=== PATIENT | female | born 1965 | race Caucasian/White ===

== ENCOUNTER 2018-08-08 13:42 | Inpatient (IN) | payer OTHER ==
[2018-08-08 18:13] VITALS: BMI 25.0
--- NOTE | 2018-08-08 19:22 | HP ---
CIWA Score - Admission Criteria [facility]ASAS Guidelines: Admission for Medically Managed Detox: Requires at least one of the followin. CIWA greater than 12 2. Seizures within the past 24 hours 3. Delirium tremens within the past 24 hours 4. Hallucinations within the past 24 hours 5. Acute intervention needed for co occurring medical disorder 6. Acute intervention needed for co occurring psychiatric disorder 7. Severe withdrawal that cannot be handled at a lower level of care (continued vomiting, continued diarrhea, abnormal vital signs) requiring intravenous medication and/or fluids 8. Admission ROS [facility] Allergies/Adverse Reactions: Allergies Allergy/AdvReac Type Severity Reaction Status Date / Time No Known Allergies Allergy Verified 08/08/18 19:16 History of Present Illness: pt here requesting rehab from cocaine use , reports 600 $ since Sunday , relapsed Sunday , prior sobriety since March 2017 , latest use today . went to [facility] for rash ,per pt referred to this facility , d/c paperwork indicates instructions for followup with dermatology clinic. denies other illicits denies etoh " only special occasions " pmHx : asthma, htn , herniated disc , bipolar d/o , depression . Denies current SI / HI PSHx : siena SHX : lives in women's retirement Exam Limitations: No Limitations - Ebola screening Have you traveled outside of the country in the last 21 days: No Have you had contact with anyone from an Ebola affected area: No Have you been sick,other than usual withdrawal symptoms: No Do you have a fever: No - Review of Systems Constitutional: Other (reports fatigue) EENT: reports: Other (reports " I am supposed to wear glasses ") Respiratory: reports: No Symptoms reported Cardiac: reports: No Symptoms Reported GI: reports: No Symptoms Reported : reports: No Symptoms Reported Musculoskeletal: reports: Back Pain Integumentary: reports: Rash (right elbow) Neuro: reports: No Symptoms reported Endocrine: reports: No Symptoms Reported Psychiatric: reports: Orientated x3 Patient History - Smoking Cessation Smoking history: Never smoked - Substances Abused Cocaine Route: Smoking Frequency: 3-6 times per week Amount used: $600 Age of first use: 25 Date of Last Use: 08/06/18 Family Disease History - Family Disease History Family Disease History: CA: Grandparent (cousin-dm ), Father (d. ), Other: Father, Mother (sarah DON, CVA ), Son (1 , A & W ), Daughter (3, A & W ) Admission Physical Exam [facility] - Vital Signs Vital Signs: Vital Signs - 24 hr 08/08/18 18:11 Temperature 98.7 F Pulse Rate 94 H Respiratory 18 Rate Blood Pressure 115/66 - Physical General Appearance: Yes: Disheveled, Other (no eye contact) HEENTM: Yes: EOMI, Hearing grossly Normal, Normocephalic, Normal Voice Respiratory: Yes: Chest Non-Tender, Lungs Clear, Normal Breath Sounds Neck: Yes: No masses,lesions,Nodules, Trachea in good position Cardiology: Yes: Regular Rhythm, Regular Rate, S1, S2, Murmur, Tachycardia Abdominal: Yes: Normal Bowel Sounds, Non Tender, Soft, Protuberent, Surgical Scar Back: Yes: Normal Inspection Musculoskeletal: Yes: Gait Steady Extremities: Yes: Non-Tender, Pedal Edema Neurological: Yes: Motor Strength 5/5, Depressed Affect Integumentary: Yes: Normal Color, Warm - Diagnostic (1) Cocaine abuse Current Visit: Yes Status: Acute S Breath Alcohol Content Breath Alcohol Content: 0 Urine Pregancy Test - Result Urine Test Results: Negative - NO line present Urine Drug Screen - Results Drug Screen Negative: No Urine Drug Screen Results: ROSINA-Cocaine Inpatient Rehab Admission - Rehab Decision to Admit Inpatient rehab admission?: Yes - Initial Determination Are CD services needed?: Yes Free of communicable disease: Yes Not in need of hospitalization: Yes - Rehab Admission Criteria Previous failed treatment: No Poor recovery environment: Yes Comorbidities: Yes Lacks judgement: Yes Patient is meeting Inpatient Rehab admission criteria:: Yes
[2018-08-08] MEDS ORDERED: MAGNESIUM HYDROX 2400MG/30ML ORAL SUSPENSION 30 ML CUP PO PRN (19:50)
[2018-08-08] MEDS ORDERED: MAGNESIUM CITRATE 300 ML BOTTLE PO PRN (19:50)
[2018-08-08] MEDS ORDERED: guaiFENesin 200 MG/10 ML 10 ML UNIT-DOSE CUPS PO PRN (19:50)
[2018-08-08] MEDS ORDERED: MENTHOL/PHENOL 1 EACH UD MM PRN (19:50)
[2018-08-08] MEDS ORDERED: P-EPHED 60MG/TRIPROLIDI 2.5MG TABLET PO PRN (19:50)
[2018-08-08] MEDS ORDERED: ALBUTEROL SO4 0.083% IH SOL 2.5 MG/3 ML VIAL.NEB. NEB PRN (19:51)
[2018-08-08] MEDS ORDERED: TUBERCULIN PPD 5 TU/0.1ML VIAL ID ONE (23:37)
[2018-08-08] MEDS: CEPHALEXIN MONOHYDRATE 500 MG CAPSULE (UD) PO SCH (23:53)
[2018-08-08] MEDS: CLOTRIMAZOLE 1% CREAM 15 GM TUBE TP SCH (23:54)
[2018-08-08] MEDS: THIAMINE HCL 100 MG TABLET (FP) PO SCH (23:56)
[2018-08-09] MEDS: CEPHALEXIN MONOHYDRATE 500 MG CAPSULE (UD) PO SCH ×3 (07:54→21:05)
[2018-08-09] MEDS: PRENATAL VITAMINS W/ FOLIC ACID TABLET (FP) PO SCH (10:50)
[2018-08-09] MEDS: predniSONE 20 MG TABLET (UD) PO SCH (10:50)
[2018-08-09] MEDS: CLOTRIMAZOLE 1% CREAM 15 GM TUBE TP SCH ×2 (11:00→21:37)
[2018-08-09 12:04] LABS: ALBUMIN 2.7 g/dl (3.4-5.0); ALK PHOS 78 U/L (45-117); ANION GAP 5 MMOL/L (8-16); BILIRUBIN,TOTAL < 0.1 mg/dL (0.2-1); BLOOD UREA NITROGEN 18 mg/dL (7-18); CALCIUM 7.8 mg/dL (8.5-10.1); CHLORIDE 111 mmol/L (98-107); CO2 31 mmol/L (21-32); CREATININE 0.8 mg/dL (0.55-1.3); GLUCOSE,RANDOM 106 mg/dL (74-106); POTASSIUM 3.8 mmol/L (3.5-5.1); SGOT/AST 9 U/L (15-37); SGPT/ALT 14 U/L (13-61); SODIUM 146 mmol/L (136-145); TOT PROT 5.3 g/dl (6.4-8.2)
[2018-08-09 12:10] LABS: HEMATOCRIT 37.1 % (32.4-45.2); HEMOGLOBIN 12.1 GM/dL (10.7-15.3); MCH 27.6 pg (25.7-33.7); MCHC 32.7 g/dl (32.0-36.0); MEAN CELL VOLUME 84.4 fl (80-96); MEAN PLT VOLUME 8.2 fl (7.5-11.1); PLATELET COUNT 175 K/MM3 (134-434); RBC 4.39 M/mm3 (3.60-5.2); RDW 13.8 % (11.6-15.6); WHITE BLOOD COUNT 5.9 K/mm3 (4.0-10.0)
[2018-08-09] MEDS ORDERED: NICOTINE POLACRILEX 2 MG GUM BUC PRN (14:06)
--- NOTE | 2018-08-09 14:15 | PN ---
[facility] Progress Note Note: LAB REVIEW: Vital Signs (72 hours) 08/08/18 08/09/18 08/09/18 18:11 01:14 03:30 Temperature 98.7 F 97.8 F Pulse Rate 94 H 89 Respiratory 18 18 16 Rate Blood Pressure 115/66 121/70 08/09/18 08/09/18 08:01 09:13 Temperature 97.2 F L Pulse Rate 88 90 Respiratory 16 18 Rate Blood Pressure 131/73 132/79 Laboratory Tests 08/09/18 08/09/18 08/09/18 10:00 10:00 10:00 WBC 5.9 RBC 4.39 Hgb 12.1 Hct 37.1 MCV 84.4 MCH 27.6 MCHC 32.7 RDW 13.8 Plt Count 175 MPV 8.2 Sodium 146 H Potassium 3.8 Chloride 111 H Carbon Dioxide 31 Anion Gap 5 L BUN 18 Creatinine 0.8 Creat Clearance w eGFR 75.03 Random Glucose 106 Calcium 7.8 L Total Bilirubin < 0.1 L AST 9 L ALT 14 Alkaline Phosphatase 78 Total Protein 5.3 L Albumin 2.7 L RPR Titer Nonreactive Labs noted.
[2018-08-09] MEDS: NICOTINE 14 MG/24 HOURS TOPICAL PATCH TD SCH (15:22)
[2018-08-09] MEDS: THIAMINE HCL 100 MG TABLET (FP) PO SCH (21:05)
[2018-08-09] MEDS: MELATONIN 5 MG TABLETS PO PRN (21:06)
[2018-08-09 22:39] LABS: EPI CELLS 26.7 /HPF (0-5); PH,URINE 7.5 (5.0-8.0); URINE APPEARANCE CLOUDY; URINE BACTERIA 254.7 /hpf (NEGATIVE); URINE BILIRUBIN NEGATIVE (NEGATIVE); URINE CASTS 4 /hpf (0-8); URINE COLOR YELLOW; URINE GLUCOSE (UA) NEGATIVE (NEGATIVE); URINE KETONE NEGATIVE (NEGATIVE); URINE LEUK ESTERASE 2+ (NEGATIVE); URINE NITRITE NEGATIVE (NEGATIVE); URINE PROTEIN NEGATIVE (NEGATIVE); URINE RBC 1 /hpf (0-4); URINE UROBILINOGEN 0.2 mg/dL (0.2-1.0); URINE WBC 8 /hpf (0-5)
[2018-08-09] MEDS: diphenhydrAMINE HCL 25 MG CAPSULE (FP) PO PRN (23:10)
[2018-08-09] MEDS ORDERED: amLODIPine BESYLATE 10 MG TABLET (FP) PO ONE (23:59)
[2018-08-10] MEDS ORDERED: chlordiazePOXIDE HCL 25 MG CAPSULE PO PRN (00:04)
[2018-08-10] MEDS ORDERED: chlordiazePOXIDE HCL 25 MG CAPSULE PO ONE (00:04)
[2018-08-10] MEDS ORDERED: PT OWN MED DRAWER 7, Y5N ONE (00:38)
[2018-08-10] MEDS ORDERED: chlordiazePOXIDE HCL 25 MG CAPSULE PO SCH (05:00)
[2018-08-10] MEDS: CEPHALEXIN MONOHYDRATE 500 MG CAPSULE (UD) PO SCH ×3 (06:31→21:27)
[2018-08-10] MEDS: NICOTINE 14 MG/24 HOURS TOPICAL PATCH TD SCH (10:04)
[2018-08-10] MEDS: predniSONE 20 MG TABLET (UD) PO SCH (10:05)
[2018-08-10] MEDS: amLODIPine BESYLATE 10 MG TABLET (FP) PO SCH (10:05)
[2018-08-10] MEDS: PRENATAL VITAMINS W/ FOLIC ACID TABLET (FP) PO SCH (10:05)
[2018-08-10] MEDS: IBUPROFEN 400 MG TABLET (FP) PO PRN ×2 (10:07→18:46)
--- NOTE | 2018-08-10 10:35 | CONSULT ---
[facility] Psychiatric Consult - Data Date of interview: 08/10/18 Admission source: [facility] Identifying data: First admission to [facility] for this 53 y/o female referred from [facility] for detoxification (cocaine). Patient is single, a mother of four, homeless (resides in a alf), unemployed and supported on SSI benefits. Substance Abuse History: Patient admits to using crack/cocaine since age 16. Gave a different answer to another clinician (onset of abuse reported to having occurred at age 25). Smoking history: patient denies. Substances Abused. Cocaine. Route: Smoking. Frequency: 3-6 times per week. Amount used: $600. Age of first use: 25. Date of Last Use: 08/06/18 Medical History: Bronchial asthma, herniated discs, chronic lumbar pain and hypertension. Psychiatric History: Patient denies history of psychiatric hospitalizations ( only CPEP visits). Reportedly diagnosed with Bipolar Disorder. Medicated with seroquel 300 mg/hs + gabapentin 300 mg po tid ((last taken seven days ago, as per self-report). Ms Villagran is followed by the [facility] team in the [place]. Denies history of suicide attempts. Physical/Sexual Abuse/Trauma History: Not discussed. Patient declines. Additional Comment: Urine Drug Screen Results: ROSINA-Cocaine. Noted. Mental Status Exam - Mental Status Exam Alert and Oriented to: Time, Place, Person Cognitive Function: Grossly Intact Patient Appearance: Well Groomed (obese) Mood: Anxious, Apprehensive Affect: Inappropriate Patient Behavior: Inappropriate, Fatigued, Cooperative Speech Pattern: Clear Voice Loudness: Normal Thought Process: Disorganized Thought Disorder: Bizarre Hallucinations: Denies Suicidal Ideation: Denies Homicidal Ideation: Denies Insight/Judgement: Poor Sleep: Poorly, Difficulty falling asleep Appetite: Good Gait/Station: Normal Psychiatric Findings - Problem List ([place] 1, 2,3) (1) Schizoaffective disorder Current Visit: Yes Status: Chronic Qualifiers: Schizoaffective disorder type: bipolar Qualified Code(s): F25.0 - Schizoaffective disorder, bipolar type Comment: As per self-report. On medications. (2) Cocaine abuse Current Visit: Yes Status: Chronic (3) Substance induced mood disorder Current Visit: Yes Status: Chronic - Initial Treatment Plan Initial Treatment Plan: Psychoeducation. Sleep hygiene. Support. Groups. Contact the [facility] team for information (patient is a poor historian). Will resume seroquel 200 mg po hs (confirmed by patient). She denies being on haloperidol (in spite of pharmacy claims of 07/26/18 indicating decanoate + oral formulations). Will hold haloperidol at this time. Until confirmation by ACT team. Side effects/benefits of seroquel are discussed with the patient. Consent (verbal) given to . Observation.
[2018-08-10] MEDS: CLOTRIMAZOLE 1% CREAM 15 GM TUBE TP SCH ×2 (11:25→21:26)
[2018-08-10] MEDS: HYDROCORTISONE 2.5% LOTION - 1 BOTTLE TP PRN (11:26)
[2018-08-10] MEDS: THIAMINE HCL 100 MG TABLET (FP) PO SCH (21:25)
[2018-08-10] MEDS: diphenhydrAMINE HCL 25 MG CAPSULE (FP) PO PRN (21:26)
[2018-08-10] MEDS: QUEtiapine FUMARATE 200 MG TABLET PO SCH (21:26)
[2018-08-11] MEDS ORDERED: chlordiazePOXIDE HCL 25 MG CAPSULE PO SCH (05:00)
[2018-08-11] MEDS: CEPHALEXIN MONOHYDRATE 500 MG CAPSULE (UD) PO SCH ×3 (06:56→21:33)
[2018-08-11] MEDS: NICOTINE 14 MG/24 HOURS TOPICAL PATCH TD SCH (10:08)
[2018-08-11] MEDS: predniSONE 20 MG TABLET (UD) PO SCH (10:09)
[2018-08-11] MEDS: PRENATAL VITAMINS W/ FOLIC ACID TABLET (FP) PO SCH (10:09)
[2018-08-11] MEDS: amLODIPine BESYLATE 10 MG TABLET (FP) PO SCH (10:09)
[2018-08-11] MEDS: HYDROCORTISONE 2.5% LOTION - 1 BOTTLE TP PRN (10:10)
[2018-08-11] MEDS: CLOTRIMAZOLE 1% CREAM 15 GM TUBE TP SCH ×2 (10:11→21:34)
[2018-08-11] MEDS: IBUPROFEN 400 MG TABLET (FP) PO PRN (18:56)
[2018-08-11] MEDS: MELATONIN 5 MG TABLETS PO PRN (21:33)
[2018-08-11] MEDS: THIAMINE HCL 100 MG TABLET (FP) PO SCH (21:33)
[2018-08-11] MEDS: QUEtiapine FUMARATE 200 MG TABLET PO SCH (21:33)
[2018-08-11] MEDS: diphenhydrAMINE HCL 25 MG CAPSULE (FP) PO PRN (23:17)
[2018-08-12] MEDS: IBUPROFEN 400 MG TABLET (FP) PO PRN (01:13)
[2018-08-12] MEDS ORDERED: chlordiazePOXIDE HCL 10 MG CAPSULE PO SCH (05:00)
[2018-08-12] MEDS ORDERED: chlordiazePOXIDE HCL 10 MG CAPSULE PO PRN (05:00)
[2018-08-12] MEDS: CEPHALEXIN MONOHYDRATE 500 MG CAPSULE (UD) PO SCH ×3 (06:27→21:39)
[2018-08-12] MEDS: NICOTINE 14 MG/24 HOURS TOPICAL PATCH TD SCH (10:07)
[2018-08-12] MEDS: amLODIPine BESYLATE 10 MG TABLET (FP) PO SCH (10:07)
[2018-08-12] MEDS: PRENATAL VITAMINS W/ FOLIC ACID TABLET (FP) PO SCH (10:07)
[2018-08-12] MEDS: CLOTRIMAZOLE 1% CREAM 15 GM TUBE TP SCH ×2 (10:08→21:40)
[2018-08-12] MEDS: LOPERAMIDE HCL 2 MG CAPSULE PO PRN (12:53)
[2018-08-12] MEDS: MAG HYDROX/AL HYDROX/SIMETH 30 ML UNIT-DOSE CUP PO PRN (14:55)
[2018-08-12] MEDS: THIAMINE HCL 100 MG TABLET (FP) PO SCH (21:39)
[2018-08-12] MEDS: QUEtiapine FUMARATE 200 MG TABLET PO SCH (21:39)
[2018-08-12] MEDS: diphenhydrAMINE HCL 25 MG CAPSULE (FP) PO PRN (21:39)
[2018-08-12] MEDS: MELATONIN 5 MG TABLETS PO PRN (21:39)
[2018-08-13] MEDS ORDERED: chlordiazePOXIDE HCL 10 MG CAPSULE PO SCH (05:00)
[2018-08-13] MEDS: CEPHALEXIN MONOHYDRATE 500 MG CAPSULE (UD) PO SCH ×3 (06:31→21:40)
[2018-08-13] MEDS: CLOTRIMAZOLE 1% CREAM 15 GM TUBE TP SCH ×2 (09:09→21:39)
[2018-08-13] MEDS: NICOTINE 14 MG/24 HOURS TOPICAL PATCH TD SCH (09:09)
[2018-08-13] MEDS: PRENATAL VITAMINS W/ FOLIC ACID TABLET (FP) PO SCH (09:10)
[2018-08-13] MEDS: amLODIPine BESYLATE 10 MG TABLET (FP) PO SCH (09:10)
[2018-08-13] MEDS: LOPERAMIDE HCL 2 MG CAPSULE PO PRN (09:10)
[2018-08-13] MEDS ORDERED: HYDROCORTISONE 2.5% LOTION - 1 BOTTLE TP PRN (11:07)
[2018-08-13] MEDS: diphenhydrAMINE HCL 25 MG CAPSULE (FP) PO PRN (21:39)
[2018-08-13] MEDS: QUEtiapine FUMARATE 200 MG TABLET PO SCH (21:39)
[2018-08-13] MEDS: THIAMINE HCL 100 MG TABLET (FP) PO SCH (21:39)
[2018-08-13] MEDS: MELATONIN 5 MG TABLETS PO PRN (21:41)
[2018-08-14] MEDS: CEPHALEXIN MONOHYDRATE 500 MG CAPSULE (UD) PO SCH ×3 (06:39→21:46)
[2018-08-14] MEDS: PRENATAL VITAMINS W/ FOLIC ACID TABLET (FP) PO SCH (09:41)
[2018-08-14] MEDS: CLOTRIMAZOLE 1% CREAM 15 GM TUBE TP SCH ×2 (09:42→21:46)
[2018-08-14] MEDS: NICOTINE 14 MG/24 HOURS TOPICAL PATCH TD SCH (09:42)
[2018-08-14] MEDS: amLODIPine BESYLATE 10 MG TABLET (FP) PO SCH (09:43)
[2018-08-14] MEDS: ACETAMINOPHEN 325 MG TABLET (FP) PO PRN ×2 (09:43→21:48)
[2018-08-14] MEDS: IBUPROFEN 400 MG TABLET (FP) PO PRN (13:33)
[2018-08-14] MEDS: QUEtiapine FUMARATE 200 MG TABLET PO SCH (21:46)
[2018-08-14] MEDS: diphenhydrAMINE HCL 25 MG CAPSULE (FP) PO PRN (21:46)
[2018-08-14] MEDS: THIAMINE HCL 100 MG TABLET (FP) PO SCH (21:46)
[2018-08-14] MEDS: MELATONIN 5 MG TABLETS PO PRN (21:47)
[2018-08-15] MEDS: CEPHALEXIN MONOHYDRATE 500 MG CAPSULE (UD) PO SCH ×2 (07:43→13:37)
[2018-08-15] MEDS: NICOTINE 14 MG/24 HOURS TOPICAL PATCH TD SCH (10:09)
[2018-08-15] MEDS: PRENATAL VITAMINS W/ FOLIC ACID TABLET (FP) PO SCH (10:09)
[2018-08-15] MEDS: amLODIPine BESYLATE 10 MG TABLET (FP) PO SCH (10:09)
[2018-08-15] MEDS: CLOTRIMAZOLE 1% CREAM 15 GM TUBE TP SCH ×2 (10:11→21:45)
[2018-08-15] MEDS: IBUPROFEN 400 MG TABLET (FP) PO PRN ×2 (13:36→21:44)
[2018-08-15] MEDS: MAG HYDROX/AL HYDROX/SIMETH 30 ML UNIT-DOSE CUP PO PRN (15:50)
[2018-08-15] MEDS: QUEtiapine FUMARATE 200 MG TABLET PO SCH (21:44)
[2018-08-15] MEDS: THIAMINE HCL 100 MG TABLET (FP) PO SCH (21:44)
[2018-08-15] MEDS: MELATONIN 5 MG TABLETS PO PRN (21:44)
[2018-08-15] MEDS: diphenhydrAMINE HCL 25 MG CAPSULE (FP) PO PRN (21:45)
[2018-08-16] MEDS: PRENATAL VITAMINS W/ FOLIC ACID TABLET (FP) PO SCH (10:41)
[2018-08-16] MEDS: NICOTINE 14 MG/24 HOURS TOPICAL PATCH TD SCH (10:41)
[2018-08-16] MEDS: amLODIPine BESYLATE 10 MG TABLET (FP) PO SCH (10:41)
[2018-08-16] MEDS: CLOTRIMAZOLE 1% CREAM 15 GM TUBE TP SCH ×2 (10:42→21:41)
[2018-08-16] MEDS: IBUPROFEN 400 MG TABLET (FP) PO PRN (13:14)
--- NOTE | 2018-08-16 15:42 | PN ---
[facility] Progress Note Note: NOTIFIED BY RN PATIENT REPORTS TAKING GABAPENTIN AT HOME FOR SHOULDER/NECK DISCOMFORT. EXTERNAL HISTORY SHOWS RECENT PRESCRIPTION FOR GABAPENTIN 300MG BID WRITTEN ON 07/16/18. WILL RESUME MEDICATION WHILE IN REHAB. Vital Signs Temperature 97.4 F L 08/16/18 07:22 Pulse Rate 105 H 08/16/18 09:29 Respiratory Rate 18 08/16/18 07:22 Blood Pressure 120/76 08/16/18 09:29 O2 Sat by Pulse Oximetry (%)
[2018-08-16] MEDS: THIAMINE HCL 100 MG TABLET (FP) PO SCH (21:40)
[2018-08-16] MEDS: MELATONIN 5 MG TABLETS PO PRN (21:40)
[2018-08-16] MEDS: QUEtiapine FUMARATE 200 MG TABLET PO SCH (21:40)
[2018-08-16] MEDS: diphenhydrAMINE HCL 25 MG CAPSULE (FP) PO PRN (21:41)
[2018-08-16] MEDS: GABAPENTIN 300 MG CAPSULE (FP) PO SCH (21:41)
[2018-08-17] MEDS: CLOTRIMAZOLE 1% CREAM 15 GM TUBE TP SCH ×2 (09:10→21:38)
[2018-08-17] MEDS: amLODIPine BESYLATE 10 MG TABLET (FP) PO SCH (09:10)
[2018-08-17] MEDS: GABAPENTIN 300 MG CAPSULE (FP) PO SCH ×2 (09:10→21:39)
[2018-08-17] MEDS: PRENATAL VITAMINS W/ FOLIC ACID TABLET (FP) PO SCH (09:11)
[2018-08-17] MEDS: NICOTINE 14 MG/24 HOURS TOPICAL PATCH TD SCH (09:11)
[2018-08-17] MEDS: ACETAMINOPHEN 325 MG TABLET (FP) PO PRN ×2 (16:58→21:40)
[2018-08-17] MEDS: MAG HYDROX/AL HYDROX/SIMETH 30 ML UNIT-DOSE CUP PO PRN (16:59)
[2018-08-17] MEDS: THIAMINE HCL 100 MG TABLET (FP) PO SCH (21:39)
[2018-08-17] MEDS: QUEtiapine FUMARATE 200 MG TABLET PO SCH (21:39)
[2018-08-17] MEDS: diphenhydrAMINE HCL 25 MG CAPSULE (FP) PO PRN (21:40)
[2018-08-18] MEDS: IBUPROFEN 400 MG TABLET (FP) PO PRN (01:24)
[2018-08-18] MEDS: PRENATAL VITAMINS W/ FOLIC ACID TABLET (FP) PO SCH (09:54)
[2018-08-18] MEDS: NICOTINE 14 MG/24 HOURS TOPICAL PATCH TD SCH (09:54)
[2018-08-18] MEDS: amLODIPine BESYLATE 10 MG TABLET (FP) PO SCH (09:54)
[2018-08-18] MEDS: GABAPENTIN 300 MG CAPSULE (FP) PO SCH ×2 (09:54→21:15)
[2018-08-18] MEDS: CLOTRIMAZOLE 1% CREAM 15 GM TUBE TP SCH ×2 (09:55→21:16)
[2018-08-18] MEDS: ACETAMINOPHEN 325 MG TABLET (FP) PO PRN ×2 (17:37→22:06)
[2018-08-18] MEDS: diphenhydrAMINE HCL 25 MG CAPSULE (FP) PO PRN (21:15)
[2018-08-18] MEDS: QUEtiapine FUMARATE 200 MG TABLET PO SCH (21:15)
[2018-08-18] MEDS: THIAMINE HCL 100 MG TABLET (FP) PO SCH (21:15)
[2018-08-19] MEDS: IBUPROFEN 400 MG TABLET (FP) PO PRN (01:41)
--- NOTE | 2018-08-19 02:39 | PN ---
S Progress Note Note: PT REPORTS LOSING HER BALANCE WHILE GETTING OUT OF BED. FELL FROM SITTING POSITION ON TO HER LEFT ARM/ELBOW. DENIES HITTING HER HEAD, LOC, DIZZINESS, VISUAL DISTURBANCES , INJURIES. Vital Signs Temperature 98.3 F 08/19/18 01:49 Pulse Rate 103 H 08/19/18 01:49 Respiratory Rate 18 08/19/18 01:49 Blood Pressure 129/83 08/19/18 01:49 O2 Sat by Pulse Oximetry (%) CLIENT SEEN LYING IN BED NAD, AROUSEABLE A/O X3 NAD, NCAT EXTREMITIES-LEFT ELBOW WITH BLANCHABLE REDNESS, AROM W/O LIMITATIONS NOTED. C/O TENDERNESS ON PALPATION SKIN- INTACT NO INJURIES BACK- NL FINDINGS S/P UNWITNESSED FALL P- FALL PROTOCOL [address] RISKS DISCUSSED, CLIENT ACCEPTS RISK. STATING SHE DID NOT HIT HER HEAD. CONT TO MONITOR CLINICALLY TYLENOL/MOTRIN/ICE PACK PRN ORDERED
[2018-08-19] MEDS: ACETAMINOPHEN 325 MG TABLET (FP) PO PRN ×2 (06:15→21:21)
[2018-08-19] MEDS: PRENATAL VITAMINS W/ FOLIC ACID TABLET (FP) PO SCH (10:06)
[2018-08-19] MEDS: amLODIPine BESYLATE 10 MG TABLET (FP) PO SCH (10:07)
[2018-08-19] MEDS: NICOTINE 14 MG/24 HOURS TOPICAL PATCH TD SCH (10:07)
[2018-08-19] MEDS ORDERED: PT OWN MED DRAWER 7, Y5N ONE (10:08)
[2018-08-19] MEDS: CLOTRIMAZOLE 1% CREAM 15 GM TUBE TP SCH ×2 (10:08→21:22)
[2018-08-19] MEDS: GABAPENTIN 300 MG CAPSULE (FP) PO SCH ×2 (11:07→21:20)
--- NOTE | 2018-08-19 14:51 | PN ---
[facility] Progress Note Note: PATIENT SEEN FOR C/O LEFT EARACHE. PATIENT DENIES FEVER, SORE THROAT AND COUGH. Vital Signs Temperature 97.7 F 08/19/18 13:39 Pulse Rate 99 H 08/19/18 13:39 Respiratory Rate 18 08/19/18 13:39 Blood Pressure 130/86 08/19/18 13:39 O2 Sat by Pulse Oximetry (%) Laboratory Tests 08/09/18 08/09/18 08/09/18 10:00 10:00 10:00 WBC 5.9 RBC 4.39 Hgb 12.1 Hct 37.1 MCV 84.4 MCH 27.6 MCHC 32.7 RDW 13.8 Plt Count 175 MPV 8.2 Sodium 146 H Potassium 3.8 Chloride 111 H Carbon Dioxide 31 Anion Gap 5 L BUN 18 Creatinine 0.8 Creat Clearance w eGFR 75.03 Random Glucose 106 Calcium 7.8 L Total Bilirubin < 0.1 L AST 9 L ALT 14 Alkaline Phosphatase 78 Total Protein 5.3 L Albumin 2.7 L Urine Color Urine Appearance Urine pH Ur Specific [place] Urine Protein Urine Glucose (UA) Urine Ketones Urine Blood Urine Nitrite Urine Bilirubin Urine Urobilinogen Ur Leukocyte Esterase Urine WBC (Auto) Urine RBC (Auto) Urine Casts (Auto) U Epithel Cells (Auto) Urine Bacteria (Auto) Valproic Acid RPR Titer Nonreactive 08/09/18 08/11/18 15:30 07:30 WBC RBC Hgb Hct MCV MCH MCHC RDW Plt Count MPV Sodium Potassium Chloride Carbon Dioxide Anion Gap BUN Creatinine Creat Clearance w eGFR Random Glucose Calcium Total Bilirubin AST ALT Alkaline Phosphatase Total Protein Albumin Urine Color Yellow Urine Appearance Cloudy Urine pH 7.5 Ur Specific [place] 1.017 Urine Protein Negative Urine Glucose (UA) Negative Urine Ketones Negative Urine Blood Negative Urine Nitrite Negative Urine Bilirubin Negative Urine Urobilinogen 0.2 Ur Leukocyte Esterase 2+ H Urine WBC (Auto) 8 Urine RBC (Auto) 1 Urine Casts (Auto) 4 U Epithel Cells (Auto) 26.7 Urine Bacteria (Auto) 254.7 Valproic Acid 4.4 L RPR Titer PE: ALERT AND ORIENTED X 2 SKIN WARM AND DRY LEFT AURICLE RED WITH MILD SWELLING, EAR CANAL WITH CERUMEN, TM NOT VISIBLE DUE TO TENDERNESS RIGHT AURICLE WNL, EAR CANAL WITH CERUMEN, TM INTACT, NO REDNESS OR DISCHARGE PRESENT EXT FULL ROM, NO SWELLING AMB AD KEON ] A/P: OTITIS EXTERNA LEFT EAR WILL START AMOXICILLIN 500MG BID X 7 DAYS CONTINUE TO TYLENOL PRN MONITOR CLINICALLY
--- NOTE | 2018-08-19 16:29 | PN ---
[facility] Progress Note Note: Psychiatry Attending's note (follow-up) : Contact established with Justa Corea, from [facility] team. At [phone]. Patient's medications are discussed via telephone. Ms Corea reports that patient has NEVER been on haloperidol decanoate. Ms Villagran was treated with haldol 10 mg po bid. Plan was to start the patient on decanoate TODAY, as per Ms Corea. However, the patient left alf and got admitted to [facility]. Additional medications from the alf : . depakote 1000 mg po hs . gabapentin 600 mg po bid . cogentin 1 mg po bid Plan : > Will not start haldol decanoate at this time. > Will honor patient's preference (quetiapine vs haldol). > Re-discuss psychopharmacotherapy with Ms Villagran. > Resume depakote 500 mg po bid + neurontin 600 mg po bid. > Secure informed consent.
[2018-08-19] MEDS: AMOXICILLIN 500 MG CAPSULE (FP) PO SCH (21:20)
[2018-08-19] MEDS: THIAMINE HCL 100 MG TABLET (FP) PO SCH (21:20)
[2018-08-19] MEDS: diphenhydrAMINE HCL 25 MG CAPSULE (FP) PO PRN (21:20)
[2018-08-19] MEDS: QUEtiapine FUMARATE 200 MG TABLET PO SCH (21:20)
[2018-08-19] MEDS: MAG HYDROX/AL HYDROX/SIMETH 30 ML UNIT-DOSE CUP PO PRN (21:22)
[2018-08-20] MEDS: PRENATAL VITAMINS W/ FOLIC ACID TABLET (FP) PO SCH (09:06)
[2018-08-20] MEDS: NICOTINE 14 MG/24 HOURS TOPICAL PATCH TD SCH (09:06)
[2018-08-20] MEDS: CLOTRIMAZOLE 1% CREAM 15 GM TUBE TP SCH ×2 (09:07→21:21)
[2018-08-20] MEDS: GABAPENTIN 300 MG CAPSULE (FP) PO SCH ×2 (09:07→21:21)
[2018-08-20] MEDS: AMOXICILLIN 500 MG CAPSULE (FP) PO SCH ×2 (09:09→21:20)
[2018-08-20] MEDS: amLODIPine BESYLATE 10 MG TABLET (FP) PO SCH (09:09)
[2018-08-20] MEDS: IBUPROFEN 400 MG TABLET (FP) PO PRN ×2 (09:10→18:54)
--- NOTE | 2018-08-20 10:02 | PN ---
Psychiatric Progress Note Vital Signs: Vital Signs Period Temp Pulse Resp BP Sys/Longo Pulse Ox Last 24 Hr 97.2 F-98.7 F 80-104 18-18 120-161/73-97 Date of Session: 08/20/18 Chief Complaint:: " I feel fine except for pain in my legs ". HPI: Routine follow-up to address regimen of medications. ROS: Slow but steady gait. Patient is alert and fully oriented. Complains of back pain. Current Medications: Active Medications Generic Name Dose Route Start Last Admin Trade Name Freq PRN Reason Stop Dose Admin Acetaminophen 650 mg 08/08/18 19:50 08/19/18 21:21 Tylenol - PO 650 mg Q4H PRN Administration FEVER Al Hydroxide/Mg Hydroxide 30 ml 08/08/18 19:50 08/19/18 21:22 Mylanta Oral Suspension - PO 30 ml Q6H PRN Administration DYSPEPSIA Albuterol Sulfate 1 amp 08/08/18 19:51 Ventolin 0.083% Nebulizer Soln - NEB Q4H PRN SHORT OF BREATH/WHEEZING Amlodipine Besylate 10 mg 08/10/18 10:00 08/20/18 09:09 Norvasc - PO 10 mg DAILY CM Administration Amoxicillin 500 mg 08/19/18 22:00 08/20/18 09:09 Amoxicillin - PO 08/26/18 21:59 500 mg BID CM Administration Clotrimazole 1 applic 08/08/18 22:00 08/19/18 21:22 Lotrimin 1% Cream - TP Not Given BID CM Diphenhydramine HCl 25 mg 08/08/18 19:51 08/19/18 21:20 Benadryl - PO 25 mg Q6H PRN Administration FOR ITCHING Eucalyptus/Menthol/Phenol/Sorbitol 1 each 08/08/18 19:50 Cepastat Lozenge - MM Q4H PRN SORE THROAT Gabapentin 300 mg 08/16/18 22:00 08/20/18 09:07 Neurontin - PO 300 mg BID CM Administration Guaifenesin 10 ml 08/08/18 19:50 Robitussin - PO Q6H PRN COUGH Hydrocortisone 1 applic 08/13/18 11:07 Hytone 2.5% Lotion - TP BID PRN FOR ITCHING Ibuprofen 400 mg 08/08/18 19:50 08/20/18 09:10 Motrin - PO 400 mg Q6H PRN Administration Pain level 4-6 Loperamide HCl 4 mg 08/12/18 10:13 08/13/18 09:10 Imodium - PO 4 mg Q6H PRN Administration DIARRHEA Magnesium Citrate 300 ml 08/08/18 19:50 Citroma - PO Q48H PRN CONSTIPATION Magnesium Hydroxide 30 ml 08/08/18 19:50 Milk Of Magnesia - PO DAILY PRN CONSTIPATION Melatonin 5 mg 08/08/18 22:00 08/16/18 21:40 Melatonin PO 5 mg HS PRN Administration INSOMNIA Nicotine 14 mg 08/09/18 14:15 08/20/18 09:06 Nicoderm Patch - TD 14 mg DAILY CM Administration Nicotine Polacrilex 2 mg 08/09/18 14:06 Nicorette Gum - BUC Q2H PRN NICOTINE REPLACEMENT RX Multivit/Folic Acid/Iron 1 tab 08/09/18 10:00 08/20/18 09:06 Vitamins (Sjr) - PO 1 tab DAILY CM Administration Pseudoephedrine/Triprolidine 1 combo 08/08/18 19:50 Actifed - PO TID PRN NASAL CONGESTION Quetiapine Fumarate 200 mg 08/10/18 22:00 08/19/18 21:20 Seroquel - PO 200 mg HS CM Administration Thiamine HCl 100 mg 08/08/18 22:00 08/19/18 21:20 Vitamin B1 - PO 100 mg HS CM Administration Medication(s) Change(s): Contact was established with Justa Corea, community recreation programmer at patient's [facility] ([phone]) on 08/19/18. Information exchanged via telephone. Ms Corea reported these medications : haldol 10 mg po bid + gabapentin 600 mg po bid + depakote 100 mg po hs. She indicated that the plan was to start haldol decanoate (100 mg IM) on 08/19/18. Medications discussed witth the patient. Will resume haldol 5 mg po bid + depakote 500 mg po bid. Decanoate haldol held until further orders. Current Side Effect: Yes (mild EPS) Lab tests ordered: No Lab tests reviewed: Yes Provider note:: Chart reviewed. Met with the patient. Total face to face time:: 35 Mental Status Exam - Mental Status Exam Alert and Oriented to: Time, Place, Person Cognitive Function: Good Patient Appearance: Well Groomed Mood: Hopeful (calm and relaxed) Affect: Appropriate, Normal Range Patient Behavior: Fatigued, Appropriate, Cooperative Speech Pattern: Clear Voice Loudness: Normal Thought Process: Goal Oriented Thought Disorder: Not Present Hallucinations: Denies Suicidal Ideation: Denies Homicidal Ideation: Denies Insight/Judgement: Fair Sleep: Fair Appetite: Good Gait/Station: Normal Psychiatric Treatment Plan - Problem List (1) Schizoaffective disorder Current Visit: Yes Qualifiers: Schizoaffective disorder type: bipolar Qualified Code(s): F25.0 - Schizoaffective disorder, bipolar type Comment: As per self-report. On medications. (2) Cocaine abuse Current Visit: Yes (3) Substance induced mood disorder Current Visit: Yes
--- NOTE | 2018-08-20 18:16 | PN ---
S Progress Note Note: New patient needs EKG order. Order place continue to monitor
[2018-08-20] MEDS: THIAMINE HCL 100 MG TABLET (FP) PO SCH (21:21)
[2018-08-20] MEDS: QUEtiapine FUMARATE 200 MG TABLET PO SCH (21:21)
[2018-08-20] MEDS: MELATONIN 5 MG TABLETS PO PRN (21:22)
[2018-08-20] MEDS: diphenhydrAMINE HCL 25 MG CAPSULE (FP) PO PRN (21:22)
[2018-08-21] MEDS: ACETAMINOPHEN 325 MG TABLET (FP) PO PRN (00:42)
[2018-08-21] MEDS: IBUPROFEN 400 MG TABLET (FP) PO PRN (03:56)
[2018-08-21] MEDS ORDERED: PT OWN MED DRAWER 7, Y5N ONE (09:09)
--- NOTE | 2018-08-21 09:56 | PN ---
[facility] Progress Note (SOAP) Subjective: Patient will be discharged tomorrow to a intermediate in [place] Objective: 08/21/18 09:56 Lab Results WBC 5.9 K/mm3 (4.0-10.0) 08/09/18 10:00 RBC 4.39 M/mm3 (3.60-5.2) 08/09/18 10:00 Hgb 12.1 GM/dL (10.7-15.3) 08/09/18 10:00 Hct 37.1 % (32.4-45.2) 08/09/18 10:00 MCV 84.4 fl (80-96) 08/09/18 10:00 MCHC 32.7 g/dl (32.0-36.0) 08/09/18 10:00 RDW 13.8 % (11.6-15.6) 08/09/18 10:00 Plt Count 175 K/MM3 (134-434) 08/09/18 10:00 Sodium 146 mmol/L (136-145) H 08/09/18 10:00 Potassium 3.8 mmol/L (3.5-5.1) 08/09/18 10:00 Chloride 111 mmol/L (98-107) H 08/09/18 10:00 Carbon Dioxide 31 mmol/L (21-32) 08/09/18 10:00 Anion Gap 5 MMOL/L (8-16) L 08/09/18 10:00 BUN 18 mg/dL (7-18) 08/09/18 10:00 Creatinine 0.8 mg/dL (0.55-1.3) 08/09/18 10:00 Random Glucose 106 mg/dL (74-106) 08/09/18 10:00 Calcium 7.8 mg/dL (8.5-10.1) L 08/09/18 10:00 08/21/18 09:56 Vital Signs (72 hours) 08/18/18 08/19/18 08/19/18 10:00 00:30 01:35 Temperature 97.9 F Pulse Rate 102 H 101 H Respiratory 18 18 18 Rate Blood Pressure 133/84 113/70 08/19/18 08/19/18 08/19/18 01:39 01:49 03:39 Temperature 98.3 F 98.3 F 97.9 F Pulse Rate 103 H 103 H 101 H Respiratory 18 18 18 Rate Blood Pressure 129/83 129/83 113/70 08/19/18 08/19/18 08/19/18 05:35 05:39 07:19 Temperature 97.9 F 97.9 F 97.9 F Pulse Rate 98 H 98 H 91 H Respiratory 18 18 18 Rate Blood Pressure 99/66 99/66 108/73 08/19/18 08/19/18 08/19/18 07:35 07:39 09:39 Temperature 97.5 F L 97.5 F L 97.1 F L Pulse Rate 87 87 103 H Respiratory 18 18 18 Rate Blood Pressure 115/77 115/77 119/70 08/19/18 08/19/18 08/19/18 11:39 13:39 16:30 Temperature 97.2 F L 98.7 F 98 F Pulse Rate 92 H 99 H 80 Respiratory 18 18 18 Rate Blood Pressure 120/85 130/86 122/82 08/19/18 08/19/18 08/19/18 17:39 19:39 21:35 Temperature 98 F 98.2 F 98 F Pulse Rate 100 H 104 H 100 H Respiratory 18 18 18 Rate Blood Pressure 122/82 161/97 161/97 08/20/18 08/20/18 08/20/18 00:30 01:39 03:30 Temperature 97.7 F Pulse Rate 103 H Respiratory 18 18 18 Rate Blood Pressure 122/73 08/20/18 08/20/18 08/21/18 07:26 09:27 03:30 Temperature 97.4 F L Pulse Rate 91 H 90 Respiratory 18 18 18 Rate Blood Pressure 133/83 132/92 08/21/18 08/21/18 06:56 09:17 Temperature 97.5 F L Pulse Rate 86 102 H Respiratory 18 Rate Blood Pressure 116/72 111/71 08/21/18 09:56 Medically stable for discharge, A=O x3, ambulates safely with a cane, Lungs clear, heart rate regular, S1S2 audible. Assessment: 08/21/18 09:58 Medically stable for discharge Diagnoses: Cocaine Abuse, chronic Substance induced mood disorder, chronic Schizoaffective disorder, chronic Plan: Client will be discharged to a intermediate where she will receive primary care, in [place]. She does not know what she will do for aftercare to stay sober- referred to counselor for that information. Prescriptions were transmitted for her BP medication and gabapentin-One week supply.
[2018-08-21] MEDS: AMOXICILLIN 500 MG CAPSULE (FP) PO SCH ×2 (10:14→21:55)
[2018-08-21] MEDS: CLOTRIMAZOLE 1% CREAM 15 GM TUBE TP SCH ×2 (10:15→21:56)
[2018-08-21] MEDS: GABAPENTIN 300 MG CAPSULE (FP) PO SCH ×2 (10:16→21:55)
[2018-08-21] MEDS: NICOTINE 14 MG/24 HOURS TOPICAL PATCH TD SCH (10:16)
[2018-08-21] MEDS: PRENATAL VITAMINS W/ FOLIC ACID TABLET (FP) PO SCH (10:17)
[2018-08-21] MEDS: amLODIPine BESYLATE 10 MG TABLET (FP) PO SCH (10:17)
--- NOTE | 2018-08-21 12:30 | EKG ---
Test Reason : Blood Pressure : / mmHG Vent. Rate : 099 BPM Atrial Rate : 099 BPM P-R Int : 144 ms QRS Dur : 084 ms QT Int : 340 ms P-R-T Axes : 075 074 049 degrees QTc Int : 436 ms NORMAL SINUS RHYTHM RIGHT ATRIAL ENLARGEMENT BORDERLINE ECG NO PREVIOUS ECGS AVAILABLE Confirmed by DEL LOONEY, MAMIE ([id number]) on 08/21/2018 12:30:06 PM Referred By: Confirmed By:MAMIE MATHIS MD
--- NOTE | 2018-08-21 20:04 | PN ---
[facility] Progress Note Note: Psychiatry Attending's note (follow-up) : Met with patient for a re-assessment of mental status. Case discussed with Multidisciplinary treatment team at [facility]. Residential Program Worker was not able to meet with the visiting ACT team. ACT team staff declines meeting with psychiatrist (as per nurse report). Received today document from [facility] (aftercare visit summary). Medication list is appreciated. Ms Villagran is scheduled for discharge tomorrow. Uneventful hospital course. Improvement of EPS noted on admission. Patient declined to resume valproate. Did well on a reduced regimen of medications. As evidenced by a marked reduction of AIMS (parkinsonism) and enhanced socialization. Mental status remains stable : no hallucinations, no delusions elicited, coherent thought processes. Patient is alert and fully oriented. Pleasant, friendly and conversant. Remarkably improved cognition. Adequate personal hygiene. Adherent to treatment. Goal-directed. Future- oriented. Ready for discharge. Patient denies suicidal/ideation, intent or plan. Not a single episode of acting out behavior during hospital course. Baseline. Discharged to case address (see clinical social work therapist's notes for details). Referred to ACT team for psychiatric aftercare. Psychotropic medications will be adjusted at the discretion of the ACT team ( haldol decanoate + quetiapine).
[2018-08-21] MEDS: QUEtiapine FUMARATE 200 MG TABLET PO SCH (21:55)
[2018-08-21] MEDS: THIAMINE HCL 100 MG TABLET (FP) PO SCH (21:55)
[2018-08-21] MEDS: diphenhydrAMINE HCL 25 MG CAPSULE (FP) PO PRN (21:55)
[2018-08-21] MEDS: HALOPERIDOL 5 MG TABLET (FP) PO SCH (21:55)
[2018-08-21] MEDS: MELATONIN 5 MG TABLETS PO PRN (21:55)
[2018-08-22 07:05] VITALS: TEMP 97.3
--- NOTE | 2018-08-22 08:33 | PN ---
[facility] Progress Note Note: Patient is scheduled for discharge today. Scripts for 30 days supply of medications(Haldol 5 mg), Seroquel 200 mg) are electronically transmitted to [facility] at [address] [place] [address]
[2018-08-22 09:04] VITALS: BP 120/81; PULSE 99
[2018-08-22] MEDS: PRENATAL VITAMINS W/ FOLIC ACID TABLET (FP) PO SCH (09:10)
[2018-08-22] MEDS: HALOPERIDOL 5 MG TABLET (FP) PO SCH (09:10)
[2018-08-22] MEDS: NICOTINE 14 MG/24 HOURS TOPICAL PATCH TD SCH (09:10)
[2018-08-22] MEDS: AMOXICILLIN 500 MG CAPSULE (FP) PO SCH (09:11)
[2018-08-22] MEDS: amLODIPine BESYLATE 10 MG TABLET (FP) PO SCH (09:11)
[2018-08-22] MEDS: GABAPENTIN 300 MG CAPSULE (FP) PO SCH (09:11)
[2018-08-22] MEDS: CLOTRIMAZOLE 1% CREAM 15 GM TUBE TP SCH (09:12)
== END 2018-08-22 15:02 | disposition home or self-care (01) | DRG 774 ==
LOC: YASAS 13:42 → Y3E 22:45
PROVIDERS: ADMIT Neuromusculoskeletal Medicine & OMM; ATTEND Neuromusculoskeletal Medicine & OMM
PROC: HZ42ZZZ Group Counseling for Substance Abuse Treatment, Cognitive-Behavioral (ICD-10-PCS; principal; 2018-08-08)
DX: F14.10 Cocaine abuse, uncomplicated (principal); F19.24 Other psychoactive substance dependence with psychoactive substance-induced mood disorder; F25.9 Schizoaffective disorder, unspecified; I10 Essential (primary) hypertension; H60.92 Unspecified otitis externa, left ear; J45.909 Unspecified asthma, uncomplicated; R00.0 Tachycardia, unspecified; R01.1 Cardiac murmur, unspecified; W06.XXXA Fall from bed, initial encounter; Y93.89 Activity, other specified; Y92.230 Patient room in hospital as the place of occurrence of the external cause
CPT/HCPCS: 36415; 80053; 80164; 81003; 85027; 86593; 93005; 93010